=== PATIENT | male | born 1970 | race Caucasian/White ===

== ENCOUNTER 2016-12-17 00:08 | Emergency (ER) | payer BC ==
[2016-01-04 08:26] VITALS: BMI 25.4
[~2016-12-17 00:08] MED LIST: HYDROCODONE-APA1 TAB PO; OMEPRAZOLE20 M1 PO
[2016-12-17 00:38] LABS: HEMATOCRIT 34.8 % (42.0-54.0); HEMOGLOBIN 12.8 g/dL (13.5-17.5); LYMPHOCYTES 40.5 % (15-50); MCH 31.4 pg (26.0-34.0); MCHC 36.8 g/dL (31.0-37.0); MCV 85.3 fL (80.0-100.0); MEAN PLATELET VOLUME 8.2 fL (7.4-10.4); NEUTROPHILS 45.2 % (40-80); PLATELET COUNT 316 10x3/uL (130-400); RBC 4.08 10x6/uL (4.20-6.10); WBC 5.8 10x3/uL (4.8-10.8)
[2016-12-17 01:08] LABS: ALBUMIN 3.9 g/dL (3.4-5.0); ALKALINE PHOSPHATASE 62 U/L (46-116); ALT (SGPT) 24 U/L (10-68); AMYLASE - SERUM 72 U/L (25-115); BILIRUBIN - TOTAL 0.47 mg/dL (0.2-1.3); CALC OSMOLALITY 254 mosm/kg (275-300); CALCIUM 8.4 mg/dL (8.5-10.1); CARBON DIOXIDE 27.4 mmol/L (21.0-32.0); CHLORIDE - SERUM 94 mmol/L (98-107); CREATININE - SERUM 0.9 mg/dL (0.6-1.3); GLUCOSE 105 mg/dL (74-106); LIPASE 209 U/L (73-393); PROTEIN - SERUM 6.8 g/dL (6.4-8.2); SODIUM 128 mmol/L (136-145); UREA NITROGEN 7 mg/dL (7-18); eGFR NON AFRICAN AMERICAN > 90 mL/min (90-120)
== END 2016-12-17 02:23 | disposition home or self-care (01) ==
LOC: D.ER 00:08
PROVIDERS: Family Medicine
DX: R11.10 Vomiting, unspecified (principal); E87.1 Hypo-osmolality and hyponatremia; K21.9 Gastro-esophageal reflux disease without esophagitis

== ENCOUNTER 2016-12-21 19:14 | Emergency (ER) | payer BC ==
[2016-01-04 08:26] VITALS: BMI 25.4
[2016-12-21 19:50] LABS: BASOPHILS 0.6 % (0-2); EOSINOPHILS 7.2 % (0-7); HEMATOCRIT 37.1 % (42.0-54.0); HEMOGLOBIN 13.1 g/dL (13.5-17.5); IMMATURE GRANULOCYTES 0.2 % (0-5); LYMPHOCYTES 42.6 % (15-50); MCH 31.6 pg (26.0-34.0); MCHC 35.3 g/dL (31.0-37.0); MCV 89.4 fL (80.0-100.0); MEAN PLATELET VOLUME 9.1 fL (7.4-10.4); MONOCYTES 9.2 % (2-11); NEUTROPHILS 40.2 % (40-80); PLATELET COUNT 328 10x3/uL (130-400); RBC 4.15 10x6/uL (4.20-6.10); RDW 12.4 % (11.5-14.5); WBC 6.4 10x3/uL (4.8-10.8)
[2016-12-21 19:51] LABS: APPEARANCE CLEAR (CLEAR); BILIRUBIN NEGATIVE (NEGATIVE); COLOR YELLOW (YELLOW); GLUCOSE NEGATIVE (NEGATIVE); KETONE NEGATIVE (NEGATIVE); LEUKOCYTE ESTERASE NEGATIVE (NEGATIVE); NITRITE NEGATIVE (NEGATIVE); PROTEIN NEGATIVE (NEGATIVE); SPECIFIC GRAVITY 1.015 (1.005-1.020); UROBILINOGEN NORMAL (NORMAL)
[2016-12-21 20:04] LABS: ALBUMIN 3.9 g/dL (3.4-5.0); ALKALINE PHOSPHATASE 64 U/L (46-116); ALT (SGPT) 21 U/L (10-68); BILIRUBIN - TOTAL 0.25 mg/dL (0.2-1.3); CALC OSMOLALITY 261 mosm/kg (275-300); CALCIUM 8.7 mg/dL (8.5-10.1); CARBON DIOXIDE 28.3 mmol/L (21.0-32.0); CHLORIDE - SERUM 96 mmol/L (98-107); CREATININE - SERUM 1.1 mg/dL (0.6-1.3); GLUCOSE 111 mg/dL (74-106); POTASSIUM - SERUM 3.7 mmol/L (3.5-5.1); PROTEIN - SERUM 6.9 g/dL (6.4-8.2); SODIUM 131 mmol/L (136-145); UREA NITROGEN 8 mg/dL (7-18); eGFR NON AFRICAN AMERICAN 76 mL/min (90-120)
== END 2016-12-21 21:40 | disposition home or self-care (01) ==
LOC: D.ER 19:14
PROVIDERS: Family Medicine
DX: R19.7 Diarrhea, unspecified (principal); E87.1 Hypo-osmolality and hyponatremia; K21.9 Gastro-esophageal reflux disease without esophagitis

== ENCOUNTER 2017-04-22 21:57 | Emergency (ER) | payer BC ==
[2016-01-04 08:26] VITALS: BMI 25.4
[2017-04-22 22:53] LABS: BASOPHILS 0.4 % (0-2); EOSINOPHILS 7.4 % (0-7); HEMATOCRIT 34.2 % (42.0-54.0); HEMOGLOBIN 12.7 g/dL (13.5-17.5); IMMATURE GRANULOCYTES 0.1 % (0-5); LYMPHOCYTES 36.7 % (15-50); MCH 31.9 pg (26.0-34.0); MCHC 37.1 g/dL (31.0-37.0); MCV 85.9 fL (80.0-100.0); MEAN PLATELET VOLUME 8.5 fL (7.4-10.4); MONOCYTES 8.1 % (2-11); NEUTROPHILS 47.3 % (40-80); PLATELET COUNT 271 10x3/uL (130-400); RBC 3.98 10x6/uL (4.20-6.10); RDW 12.3 % (11.5-14.5); WBC 6.9 10x3/uL (4.8-10.8)
[2017-04-22 23:08] LABS: ALBUMIN 3.7 g/dL (3.4-5.0); ALKALINE PHOSPHATASE 59 U/L (46-116); ALT (SGPT) 24 U/L (10-68); BILIRUBIN - TOTAL 0.35 mg/dL (0.2-1.3); CALC OSMOLALITY 252 mosm/kg (275-300); CALCIUM 8.3 mg/dL (8.5-10.1); CARBON DIOXIDE 26.6 mmol/L (21.0-32.0); CHLORIDE - SERUM 92 mmol/L (98-107); CREATININE - SERUM 0.9 mg/dL (0.6-1.3); GLUCOSE 105 mg/dL (74-106); POTASSIUM - SERUM 3.4 mmol/L (3.5-5.1); PROTEIN - SERUM 6.7 g/dL (6.4-8.2); SODIUM 127 mmol/L (136-145); UREA NITROGEN 7 mg/dL (7-18); eGFR NON AFRICAN AMERICAN > 90 mL/min (90-120)
== END 2017-04-23 01:27 | disposition home or self-care (01) ==
LOC: D.ER 21:57
PROVIDERS: Emergency Medicine
DX: K59.00 Constipation, unspecified (principal); K21.9 Gastro-esophageal reflux disease without esophagitis

== ENCOUNTER 2019-05-28 06:56 | Observation (INO) | payer BC ==
[~2019-05-28] VITALS: Ht 175.3 cm; Wt 80.9 kg
[2019-05-28] MEDS ORDERED: ZITHROMAX250 MG PO (07:05)
[2019-05-28 07:26] LABS: BASOPHILS 0.3 % (0-2); EOSINOPHILS 4.6 % (0-7); HEMATOCRIT 35.2 % (42.0-54.0); HEMOGLOBIN 13.1 g/dL (13.5-17.5); IMMATURE GRANULOCYTES 0.2 % (0-5); LYMPHOCYTES 24.4 % (15-50); MCH 32.6 pg (26.0-34.0); MCHC 37.2 g/dL (31.0-37.0); MCV 87.6 fL (80.0-100.0); MEAN PLATELET VOLUME 8.7 fL (7.4-10.4); MONOCYTES 11.2 % (2-11); NEUTROPHILS 59.3 % (40-80); RBC 4.02 10x6/uL (4.20-6.10); RDW 12.5 % (11.5-14.5); WBC 6.6 10x3/uL (4.8-10.8)
[2019-05-28 07:30] LABS: PLATELET COUNT 351 10x3/uL (130-400)
[2019-05-28 07:36] LABS: CALC OSMOLALITY 255 mosm/kg (275-300); CALCIUM 9.3 mg/dL (8.5-10.1); CARBON DIOXIDE 27.8 mmol/L (21.0-32.0); CHLORIDE - SERUM 93 mmol/L (98-107); CREATININE - SERUM 1.1 mg/dL (0.6-1.3); GLUCOSE 95 mg/dL (74-106); POTASSIUM - SERUM 3.9 mmol/L (3.5-5.1); SODIUM 128 mmol/L (136-145); UREA NITROGEN 9 mg/dL (7-18); eGFR NON AFRICAN AMERICAN 76 mL/min (90-120)
[2019-05-28 07:43] LABS: ALBUMIN 4.3 g/dL (3.4-5.0); ALKALINE PHOSPHATASE 74 U/L (46-116); ALT (SGPT) 18 U/L (10-68); PROTEIN - SERUM 7.3 g/dL (6.4-8.2)
--- NOTE | 2019-05-28 09:13 | NUR ---
TO MRI VIA W/C WITH OFFICE SUPPORT
[2019-05-28 09:50] VITALS: BP 121/75
[2019-05-28 11:23] LABS: T4 THYROXIN - FREE 0.74 ng/dL (0.76-1.46); THYROID STIMULATING HORMONE 1.06 uIU/mL (0.36-3.74)
[2019-05-28 13:17] VITALS: BP 126/75
--- NOTE | 2019-05-28 13:24 | NUR ---
REPORT CALLED TO TARYN USING SBAR FOR ROOM 2226
[2019-05-28] MEDS ORDERED: FAMOTIDINE10 MG PO (14:30)
[2019-05-28 14:35] VITALS: BP 126/76; Ht 175.3 cm; Wt 80.9 kg
--- NOTE | 2019-05-28 16:20 | NUR ---
CALLED FOR TELEMETRY.
--- NOTE | 2019-05-28 16:54 | MORECARE ---
CASE MANAGEMENT DISCHARGE SUMMARY PATIENT: SHEMAR VILLAREAL GENE UNIT: [id number] ADM DATE: 05/28/19 AGE: 48 : 70 SEX: M ROOM/BED: D.2226 AUTHOR: BENJI HENRIQUEZ PHYSICIAN: REFERRING PHYSICIAN: THO DAWKINS MD DATE OF SERVICE: 05/28/19 Discharge Plan Patient Name: SHEMAR VILLAREAL [facility] [facility] 1970 Planned Disposition: Critical Access [facility] Anticipated Discharge Date: Discharge Date: Expected LOS: Initial Reviewer: [email or web address] Initial Review Date: 05/28/2019 Generated: 05/28/19 5:53 pm Comments DCP- Discharge Planning Updated by [email or web address]: Gely Fragoso on 05/28/19 3:[address] PATIENT IS BEING TRANSFER TO A HIGHER LEVEL OF CARE. I HAVE [facility] I SPOKE WITH ERENDIRA. I FAXED CLINICALS TO [phone]. SUSY HAS CALLED THE [facility] TO ASSIST NEEDED Patient Name: SHEMAR VILLAREAL Page [id number] at 1654 All edits/amendments must be made on the electronic document DICTATION DATE: 05/28/191652 EXTRA HAND: TABBY 05/28/191652 RPT#: [id number] DC DATE: STATUS: ADM IN [facility] [address] [place] [address] END OF REPORT
[2019-05-28] MEDS ORDERED: PROTONIX40 MG PO (17:11)
[2019-05-28] MEDS ORDERED: Morphine Sulfate IV (17:11)
--- NOTE | 2019-05-28 19:45 | NUR ---
PT RESTING IN BED. ALERT AND ORIENTED. NO SIGNS OF DISTRESS. BREATHING EVEN AND UNLABORED. IV SITE RT AC DRESSING CLEAN DRY AND INTACT. NO SIGNS OF INFECTION. PT STATES BLURRED VISION IN LT EYE HAS IMPROVED. LUNG SOUNDS CLEAR. BOWEL SOUNDS ACTIVE. SKIN CLEAN DRY AND INTACT. NO LOWER LEG SWELLING PRESENT. WILL CONTINUE PLAN OF CARE. CALL LIGHT IN REACH. BED LOWERED AND LOCKED. FAMILY AT BEDSIDE.
[2019-05-28 20:00] VITALS: BP 122/70
--- NOTE | 2019-05-28 22:23 | NUR ---
CALL FROM [employer]. REQUESTED FOR THE 3RD TIME TO SEND A FACE SHEET. THIS NURSE HAS PERSONALLY SENT THE FACE SHEET TO THREE DIFFERENT NUMBERS GIVEN TO ME BY [employer]. MADE [employer] STAY ON THE PHONE WHILE THIS NURSE FAXED TO [employer] FOR THE FOURTH TIME. FAX MACHINE STATES SUCCESSFUL. [employer] REPORTED SUCCESSFUL. STATES THEY WILL CALL THIS NURSE BACK WITH ROOM NUMBER SHORTLY.
--- NOTE | 2019-05-28 23:25 | NUR ---
LIFENET ARRIVED TO FLY PT TO [facility]. PT STABLE AT THIS TIME. VITALS STABLE. PT STATES FULL UNDERSTANDING OF WHAT IS GOING ON. REPORT GIVEN TO MIRACLE BRAR AT [facility].
--- NOTE | 2019-06-01 08:11 | MORECARE ---
CASE MANAGEMENT DISCHARGE SUMMARY PATIENT: SHEMAR VILLAREAL GENE UNIT: [id number] ADM DATE: 05/28/19 AGE: 48 : 70 SEX: M ROOM/BED: D.2226 AUTHOR: BENJI HENRIQUEZ PHYSICIAN: REFERRING PHYSICIAN: THO DAWKINS MD DATE OF SERVICE: 06/01/19 Discharge Plan Patient Name: SHEMAR VILLAREAL [facility] [facility] 1970 Planned Disposition: Critical Access [facility] Anticipated Discharge Date: Discharge Date: 05/28/2019 Expected LOS: 0 Initial Reviewer: [email or web address] Initial Review Date: 05/28/2019 Generated: 06/01/19 9:11 am DCP- Discharge Planning Updated by [email or web address]: Gely Fragoso on 05/28/19 3:[address] PATIENT IS BEING TRANSFER TO A HIGHER LEVEL OF CARE. I [facility] I SPOKE WITH ERENDIRA. I FAXED CLINICALS TO [phone]. SUSY HAS CALLED THE [facility]. CM TO ASSIST NEEDED Last DP export: 05/28/19 3:54 Patient Name: SHEMAR VILLAREAL Page [phone] at 0811 All edits/amendments must be made on the electronic document DICTATION DATE: 06/01/19810 GRAIN OPERATOR: TABBY 06/01/19810 RPT#: [id number] DC DATE:05/28/19 STATUS: DIS IN [facility] [address] [place] [address] END OF REPORT
== END 2019-05-28 23:29 | disposition short-term general hospital (02) ==
LOC: D.ER 06:56 → D.MS 12:42 → OBSVTIME 12:42 → D.MS 12:42
PROVIDERS: Family Medicine; ADMIT Family Medicine; ATTEND Family Medicine
DX: D35.2 Benign neoplasm of pituitary gland (principal); E87.1 Hypo-osmolality and hyponatremia; K21.9 Gastro-esophageal reflux disease without esophagitis; F17.203 Nicotine dependence unspecified, with withdrawal; D64.9 Anemia, unspecified; R11.2 Nausea with vomiting, unspecified; E86.0 Dehydration; G44.89 Other headache syndrome; H54.40 Blindness, one eye, unspecified eye; R22.0 Localized swelling, mass and lump, head